=== PATIENT | female | born 1985 | race Caucasian/White ===

== ENCOUNTER 2020-02-26 16:30 | Emergency (ER) | payer MEDICAID, SELFPAY ==
[2020-02-26 16:36] VITALS: BP 90/60; PULSE 71; RESP 18; TEMP 36.2; O2SAT 99
--- NOTE | 2020-02-26 17:05 | NUR.NOTE ---
Nursing Note: Tried to give urine specimen. States she was unable to void.
--- NOTE | 2020-02-26 17:27 | NUR.NOTE ---
Nursing Note: Talking to a Pipeliner on the phone.
[2020-02-26 18:03] LABS: Abs Immature Grans 0.05 10^3/uL (0.0-0.06); Absolute Basophil Count 0.05 10^3/uL (0.0-0.2); Absolute Eosinophil Count 0.11 10^3/uL (0.0-0.7); Absolute Lymphocyte Count 1.49 10^3/uL (1.2-3.4); Absolute Monocyte Count 0.55 10^3/uL (0.1-0.8); Basophils % 0.5; Eosinophils % 1.2; HCT 36.7 % (36.0-46.0); HGB 12.3 g/dL (11.2-15.7); Immature Grans % 0.5; Lymphocytes % 15.6; MCH 31.7 pg (27.0-33.0); MCHC 33.5 % (32.0-36.0); MCV 94.6 fL (80-95); MPV 10.2 fL (8.0-11.0); Monocytes % 5.8; Neutrophils % 76.4; Nucleated RBC 0 %; Platelet Count 259 10^3/uL (130-400); RBC 3.88 10^6/uL (3.93-5.22); RDW 14.6 % (11.7-14.6); RDW-SD 50.1 fL; WBC 9.55 10^3/uL (4.4-10.8)
--- NOTE | 2020-02-26 18:11 | ED.GENADUL_ITS ---
Discharge Plan Disposition Patient Disposition: HOME Condition: Stable Discharge Details Clinical Impression: Opiate withdrawal, Opiate abuse, continuous, Encounter for monitoring Suboxone maintenance therapy, Primary Care Provider: None,None ED Provider: Branden Wright Home Meds and New Rx's Prescriptions: Continued clonazepam 0.5 mg Tablet 0.5 mg PO BID RF: 0 Latuda 40 mg Tablet 40 mg PO DAILY RF: 0 Discharge Instructions Instructions: (ED), Opioid Withdrawal (ED), Opioid Use Disorder (ED) Additional Instructions: A single dose of Suboxone was given here, a take-home film was given for tomorrow. Laboratory values completed here in the ER revealed elevated liver enzymes, this will need to be followed as an outpatient. Hepatitis B, C, HIV all pending. Please watch for new or worsening symptoms and return to the ER for any concerns. Please follow the instructions given to you by the care management team and the job coaching. I personally spoke with Dr. Huerta to make them aware of your ER visit and to help expedite outpatient care. I also personally spoke with Dr. Jacobson who is aware of your visit, recommends this treatment, I would like you to go to the [facility] on Friday at 5:30 AM. You also received a single dose of Narcan to be discharged from the ER with. Medical Decision Making 34-year-old female G2, P1, approximately 6 months , presenting to the ER requesting MAT. She is scheduled to be seen at the [facility] on Friday. She reports body aches, nausea, occasional vomiting, feeling hot and cold. Denies abdominal pain, vaginal bleeding or discharge. 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 Huerta. I sat down with the patient and went through the workflow packet for MAT with the patient. Discussed treatment in length, answered all questions, obtained consent. Obtained blood work and urinalysis. I contacted Dr. Jacobson from the [facility], who recommends initiating Suboxone 10/16, she will have her follow-up in the clinic Friday morning at 5:[address] Jacobson believes this is the right thing to do it does not request anything else here from the ER. I also obtained consent from the patient to contact her COMMUNICATION[employer] SYSTEMS [employer] Dr. Huerta. I personally spoke with Dr. Huerta and made him aware that the patient is initiating MAT and her overall history of IV heroin use as well as Suboxone. He is thankful, will follow her as an outpatient has no additional questions or concerns. heart tones in the 150s Laboratory values reveal a white blood cell count of 9.55 hemoglobin 12.3 hematocrit 36.7 platelet count 259. Sodium 136 potassium 3.4 creatinine 0.66 with a GFR greater than 60. Glucose 76. AST 464, ALT 431, alkaline phosphatase 79, toxicology positive for opiates and cocaine. Hepatitis B, C, HIV all pending. COWS:17 Both care management and the job coaching were contacted and is a both spoke with the patient. Please see their notes. Patient will receive a single dose 10/16 now, a single film to go home with, and follow-up with the clinic on Friday at 5:30 AM. Patient also given Narcan with atomizer. Patient was observed in the ER for over 3 hours. She ate multiple meals, drink fluids, ambulated to the restroom steadily multiple times. Her blood pressure remained steady in the 90s over 60s, patient reports that this is her baseline. She denies any dizziness, weakness, chest pain, shortness of breath. Pulse remains in the 70s. Patient verbalizes understanding of her visit, disposition, follow-up on Friday morning. Patient is comfortable discharge, has no additional questions or concerns. Her friend is coming to pick her up, she has a safe place to go this evening. We did discuss her laboratory values, elevated LFTs, she understands that hepatitis B, C, HIV are all pending. These labs are not resulted tonight and will need to be followed as an outpatient including her elevated LFTs. Lab Data Lab results reviewed: Yes I reviewed the patient's lab results. Lab results narrative: Laboratory Tests Range/Units 02/26/20 02/26/20 02/26/20 17:50 17:50 18:45 WBC (4.4-10.8) 10^3/uL 9.55 RBC (3.93-5.22) 10^6/uL 3.88 L Hgb (11.2-15.7) g/dL 12.3 Hct (36.0-46.0) % 36.7 MCV (80-95) fL 94.6 MCH (27.0-33.0) pg 31.7 MCHC (32.0-36.0) % 33.5 RDW (11.7-14.6) % 14.6 Plt Count (130-400) 10^3/uL 259 MPV (8.0-11.0) fL 10.2 Immature Gran % 0.5 Neutrophils % 76.4 Lymphocytes % 15.6 Monocytes % 5.8 Eosinophils % 1.2 Basophils % 0.5 Nucleated RBC % % 0 Absolute Neutrophils (1.2-6.7) 10^3/uL 7.30 H Absolute Lymphocytes (1.2-3.4) 10^3/uL 1.49 Absolute Monocytes (0.1-0.8) 10^3/uL 0.55 Absolute Eosinophils (0.0-0.7) 10^3/uL 0.11 Absolute Basophils (0.0-0.2) 10^3/uL 0.05 Sodium (136-145) mmol/L 136 Potassium (3.5-5.1) mmol/L 3.4 L Chloride (98-107) mmol/L 101 Carbon Dioxide (21.0-32.0) mmol/L 25.9 Anion Gap (3-11) mmol/L 9.1 BUN (7-18) mg/dL 4 L Creatinine (0.55-1.02) mg/dL 0.66 Estimated GFR/1.73 m2 (mL/min/1.73m2) >= 60.00 Glucose (74-106) mg/dL 76 Calcium (8.5-10.1) mg/dL 8.6 Total Bilirubin (0.2-1.0) mg/dL 1.0 AST (15-37) U/L 464 H ALT (14-59) U/L 431 H Alkaline Phosphatase (46-116) U/L 79 Total Protein (6.4-8.2) g/dL 6.2 L Albumin (3.4-5.0) g/dL 2.7 L Urine Opiates Screen (Negative) Positive A Urine Methadone Screen (Negative) Negative Ur Barbiturates Screen (Negative) Negative Ur Tricyclics Screen (Negative) Negative Ur Amphetamines Screen (Negative) Negative U Benzodiazepines Scrn (Negative) Negative Urine Cocaine Screen (Negative) Positive A Ur THC Screen (Negative) Negative Ethyl Alcohol (<3) mg/dL < 3.0 HPI General Mode of arrival: ambulatory . Date/Time Provider Initiated Documentation: 02/26/20 16:41 . Limitations to Documentation: no limitations . Information obtained by: patient . HPI Narrative: This is a 34-year-old female, current smoker, schizoaffective disorder, history of IV drug use, specifically fentanyl, presenting to the ER at the request of the [facility] to initiate MARIA GUADALUPE. She says that she has stopped using IV fentanyl about 4 months ago with only occasional relapse. She has been primarily using Suboxone 10/16 that she has been getting off of the street. She is scheduled to be seen at the clinic on Friday but they recommended coming to the ER to initiate the process. She states that she has not used Suboxone in the past 3 days. Today she complains of general body aches, feeling hot and cold, occasional vomiting. She denies recent illness or trauma. Denies fever, chest pain, shortness of breath, abdominal pain, back pain, dysuria, hematuria, vaginal bleeding or discharge. 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 Huerta. At this time she has no additional questions or concerns and would like to initiate the process. I did have a candid conversation with her regarding the process, need for laboratory values, consent, etc. and that this process does take typically between 2-3 hours. She is aware and agreeable to stay in the ER to initiate this process. Related Data Home Medications Medication Instructions Recorded Confirmed Latuda 40 mg PO DAILY 02/26/20 02/26/20 clonazepam 0.5 mg PO BID 02/26/20 02/26/20 Allergies Allergy/AdvReac Type Severity Reaction Status Date / Time No Known Allergies Allergy Unverified 02/26/20 16:46 General Stated Complaint: DrugWithdr/MAT MARCELO: 3 Review of Systems Constitutional Constitutional: Denies chills, Denies fatigue, Denies fever(s), Denies headache(s) and Denies weakness ENT Ears, Nose, Mouth, and Throat: Denies headache(s) and Denies neck pain Cardiovascular Cardiovascular: Denies chest pain and Denies dyspnea Respiratory Respiratory: Denies cough and Denies dyspnea Gastrointestinal Gastrointestinal: Denies abdominal pain, Denies diarrhea, Reports nausea and Reports vomiting Genitourinary Genitourinary: Denies abnormal vaginal bleeding, Denies dysuria, Denies pelvic pain and Denies vaginal discharge Musculoskeletal Musculoskeletal: Denies back pain, Reports myalgias, Denies muscle weakness, Denies neck pain, Denies numbness and Denies tingling Integumentary/Breasts Skin/Breast: Denies rash Neurologic Neurologic: Denies headache(s), Denies numbness, Denies tingling and Denies weakness Endocrine Endocrine: Denies fatigue [facility] Social History Smoking/Tobacco Use Status: Current every day Tobacco Type: cigarettes Smoking risk assessment performed?: Yes Alcohol Intake: never Drug use: Daily Substance use type: opiates and IV drugs Details: suboxone off the street 8/2 mg per day Do you feel safe at home: Yes Do you feel safe in your relationship?: Yes Exam Const General: cooperative, healthy appearing, comfortable and no acute distress Orientation: alert, awake and oriented x3 HENMT Head: normal to inspection, normocephalic and atraumatic Face and sinus: normal facial exam Mouth: moist mucous membranes Throat: posterior oropharynx normal Eyes General: appearance normal, both eyes and all related structures Conjunctivae: conjunctivae normal Sclera: sclerae normal Neck Neck: normal visual inspection, full ROM, meningismus present, trachea midline and supple Resp Effort & Inspection: normal respiratory effort and able to speak in complete sentences Auscultation: clear to auscultation bilaterally Cardio Rate: regular rate Rhythm: regular rhythm GI Inspection: other (Consistent inspection and palpitation of 6 months ) Palpation: soft, not firm, no guarding, nontender and other Auscultation: normal bowel sounds Back/Spine/Pelvis Back: No back tenderness Skin General skin exam: no rashes or lesions noted and other (Noninfected track mayorga right antecubital region) Neuro General: patient alert, patient awake, patient oriented x3, moves all extremities and no focal motor deficits Cognition: normal cognition Speech: speech normal Gait: normal gait Motor: muscle tone normal throughout Sensory Exam: no sensory deficits noted Extrem General: normal to inspection, full ROM, capillary refill normal, no pedal edema and no calf tenderness Psych Appearance: grossly normal Mental Status: mental status grossly normal Course Vital Signs Vital signs: Vital Signs Temperature 36.2 C L 02/26/20 16:36 Pulse 71 02/26/20 16:36 Respiratory Rate 18 02/26/20 16:36 Blood Pressure 90/60 L 02/26/20 16:36 Pulse Oximetry 99 02/26/20 16:36 Temperature 36.2 C L 02/26/20 16:36 Temperature Source Skin 02/26/20 16:36 Pulse 71 02/26/20 16:36 Respiratory Rate 18 02/26/20 16:36 Respiratory Effort Non-Labored 02/26/20 16:47 Blood Pressure 90/60 L 02/26/20 16:36 Blood Pressure Position Sitting 02/26/20 16:36 Pulse Oximetry 99 02/26/20 16:36 Oxygen Delivery Method Room Air 02/26/20 16:36 Oxygen Flow Rate 0 02/26/20 16:36 Pain Level 2 02/26/20 16:36 Comment 02/26/20 16:36 Lab/Test Results Lab/Test Results: Laboratory Tests Range/Units 02/26/20 17:50 WBC (4.4-10.8) 10^3/uL 9.55 RBC (3.93-5.22) 10^6/uL 3.88 L Hgb (11.2-15.7) g/dL 12.3 Hct (36.0-46.0) % 36.7 MCV (80-95) fL 94.6 MCH (27.0-33.0) pg 31.7 MCHC (32.0-36.0) % 33.5 RDW (11.7-14.6) % 14.6 Plt Count (130-400) 10^3/uL 259 MPV (8.0-11.0) fL 10.2 Immature Gran % 0.5 Neutrophils % 76.4 Lymphocytes % 15.6 Monocytes % 5.8 Eosinophils % 1.2 Basophils % 0.5 Nucleated RBC % % 0 Absolute Neutrophils (1.2-6.7) 10^3/uL 7.30 H Absolute Lymphocytes (1.2-3.4) 10^3/uL 1.49 Absolute Monocytes (0.1-0.8) 10^3/uL 0.55 Absolute Eosinophils (0.0-0.7) 10^3/uL 0.11 Absolute Basophils (0.0-0.2) 10^3/uL 0.05
--- NOTE | 2020-02-26 18:13 | NUR.NOTE ---
Nursing Note: Talking with Case Management on the phone. Gave patient a dinner tray and large ice water. Patient aware she will not be dosed until we have all the samples and paperwork. Then after being dosed she will need to be observed for an hour or so.
[2020-02-26 18:16] LABS: ALT 431 U/L (14-59); AST 464 U/L (15-37); Albumin 2.7 g/dL (3.4-5.0); Alkaline Phosphatase 79 U/L (46-116); Anion Gap 9.1 mmol/L (3-11); BUN 4 mg/dL (7-18); CO2 25.9 mmol/L (21.0-32.0); CREATININE 0.66 mg/dL (0.55-1.02); Calcium 8.6 mg/dL (8.5-10.1); Chloride 101 mmol/L (98-107); Glucose 76 mg/dL (74-106); Potassium 3.4 mmol/L (3.5-5.1); Sodium 136 mmol/L (136-145); Total Protein 6.2 g/dL (6.4-8.2)
[2020-02-26 18:18] LABS: ETHANOL BLOOD < 3.0 mg/dL (<3)
[2020-02-26] MEDS: Buprenorphine/Naloxone 8 mg/2 mg FILM 1 EACH SL ×2 (19:02→19:58)
[2020-02-26 19:04] VITALS: BP 98/58; PULSE 70; O2SAT 97
[2020-02-26 19:04] LABS: *AMPHETAMINES SCREEN URINE Negative (Negative); *BARBITURATES SCREEN URINE Negative (Negative); *BENZODIAZEPINES SCREEN URINE Negative (Negative); Cannabinoids THC Negative (Negative); Cocaine Screen,Urine POSITIVE (Negative); METHADONE URINE SCREEN Negative (Negative); OPIATES URINE SCREEN POSITIVE (Negative)
[2020-02-26 19:05] LABS: Tricyclic Antidepressants Negative (Negative)
[2020-02-26 19:50] VITALS: BP 98/51; PULSE 77; RESP 18; O2SAT 95
--- NOTE | 2020-02-26 20:08 | NUR.NOTE ---
Nursing Note:Patient currently living with a friend in [place]. States her 9 YO son currently with her mother in [facility]. Patient requesting to be referred to the [facility] as she has been buying Suboxone on the street to try to stay away from Fentanyl. Patient has a long history with substance abuse to include ETOH as well. States she was in a Suboxone program about 9 years ago when her son was born. At that time had been using Heroin. Has never been to a formal inpatient detox. program. Patient also having increased anxiety because her doctor will not renew her Latuda or Clonazepam. Patient states her doctor asked her if she had been using Fentanyl and patient states she was honest and told her yes. so she would not refill them. Encouraged patient to ask about this when she goes to the clinic Friday AM. Patient ate well while in the ER. Bowl of chicken veg. soup, 2 small cans of tomato soup, 1 1/2 ham and cheese sandwiches, large ice water, can of gingerale, multiple packages of crackers and a popsicle. Patient appears to be thinking clearly and goal oriented. Patient has been receiving regular care in [place] and they have told her they will help her transition to a Provider in this area. Patient has signed consents in [facility] packet, COWS completed, will be discharged with (1) film 8/2 mg for tomorrow and a 2 pack of Narcan nasal spray. Patient states the last time she overdosed was last summer and it was on Fentanyl. States she was given Narcan by EMS. Patient has called her friend she is staying with in [place] to come pick her up. As of 2033 he has not arrived. Patient is discharged and will go outside to wait for him.
[2020-02-28 09:59] LABS: HBs Antibody, Quant 102.9 mIU/mL (See Note); Hepatitis B Surface Ab Positive (See Note)
[2020-02-28 10:47] LABS: HIV-1/2 Ag & Ab Screen Negative (Negative)
[2020-02-28 11:36] LABS: Hepatitis C Ab w Rflx HCV PCR Reactive (Negative)
[2020-03-01 14:22] LABS: HCV RNA Qualitative Detected (Undetected)
== END 2020-02-26 20:00 | disposition home or self-care (01) ==
PROVIDERS: Emergency Provider Physician Assistant
DX: O99.322 Drug use complicating pregnancy, second trimester (principal); O99.332 Smoking (tobacco) complicating pregnancy, second trimester; O99.342 Other mental disorders complicating pregnancy, second trimester; Z3A.24 24 weeks gestation of pregnancy; F11.13 Opioid abuse with withdrawal; F17.210 Nicotine dependence, cigarettes, uncomplicated; F25.9 Schizoaffective disorder, unspecified; Z51.81 Encounter for therapeutic drug level monitoring
CPT/HCPCS: 36415; 80053; 80307; 86706; 86803; 87389; 87522; 99283; 80320; 85025; 99284

== ENCOUNTER 2020-03-08 02:08 | Outpatient (CLI) | payer MEDICAID, SELFPAY ==
[2020-03-08 10:54] LABS: Abs Immature Grans 0.09 10^3/uL (0.0-0.06); Absolute Basophil Count 0.05 10^3/uL (0.0-0.2); Absolute Eosinophil Count 0.17 10^3/uL (0.0-0.7); Absolute Lymphocyte Count 2.32 10^3/uL (1.2-3.4); Absolute Monocyte Count 0.64 10^3/uL (0.1-0.8); Absolute Neutrophil Count 6.95 10^3/uL (1.2-6.7); Basophils % 0.5; Eosinophils % 1.7; HCT 37.5 % (36.0-46.0); HGB 12.7 g/dL (11.2-15.7); Immature Grans % 0.9; Lymphocytes % 22.7; MCH 32.1 pg (27.0-33.0); MCHC 33.9 % (32.0-36.0); MCV 94.7 fL (80-95); MPV 10.5 fL (8.0-11.0); Monocytes % 6.3; Neutrophils % 67.9; Nucleated RBC 0 %; Platelet Count 238 10^3/uL (130-400); RBC 3.96 10^6/uL (3.93-5.22); RDW 14.6 % (11.7-14.6); RDW-SD 50.2 fL; WBC 10.22 10^3/uL (4.4-10.8)
[2020-03-08 11:38] LABS: TSH (W/Ref FT4) 3.41 uIU/mL (0.36-3.74)
[2020-03-09 09:03] LABS: Hepatitis B Surface Ag Negative (Negative)
[2020-03-09 09:37] LABS: HIV-1/2 Ag & Ab Screen Negative (Negative)
[2020-03-09 10:42] LABS: Hepatitis C Ab w Rflx HCV PCR Reactive (Negative)
[2020-03-09 10:50] LABS: Varicella IgG Antibody Positive (See Note)
[2020-03-09 10:54] LABS: Rubella IgG Ab (UVM) Positive (See Note)
[2020-03-10 08:55] LABS: Thyroperoxidase Antibody <28 U/mL (<=60)
[2020-03-11 10:01] LABS: Syphilis Total Ab w/Reflex Nonreactive (Nonreactive)
[2020-03-14 16:01] LABS: HCV RNA Qualitative Detected (Undetected)
== END 2020-03-08 02:28 ==
PROVIDERS: Advanced Practice Midwife; Visit Provider Advanced Practice Midwife
DX: Z34.91 Encounter for supervision of normal pregnancy, unspecified, first trimester (principal); Z11.59 Encounter for screening for other viral diseases; Z11.4 Encounter for screening for human immunodeficiency virus [HIV]; Z01.84 Encounter for antibody response examination
CPT/HCPCS: 80307; 86376; 86787; 86803; 86850; 86900; 86901; 87340; 87389; 87522; 84443; 85025; 86762; 86780; 87086